=== PATIENT | female | born 1975 | race Caucasian/White ===

== ENCOUNTER 2017-04-01 21:49 | Emergency (ER) | payer OTHER ==
[~2017-04-01] VITALS: Ht 160 cm; Wt 65.8 kg
[2017-04-01 21:59] VITALS: BP_SYST 147
[2017-04-01] MEDS ORDERED: LevALBUTEROL HCL 1.25 MG/0.5 ML *CONC.* VIAL.NEB (XOPENEX CONC.) INH ONE (23:15)
[2017-04-01 23:28] LABS: BILIRUBIN,URINE NEGATIVE (NEGATIVE); BLOOD, URINE 1+ (NEGATIVE); CLARITY/URINE CLEAR (CLEAR); COLOR,URINE YELLOW (YELLOW); GLUCOSE,URINE NEGATIVE (NEGATIVE); KETONES,URINE NEGATIVE (NEGATIVE); LEUKOCYTE ESTERASE ,URINE NEGATIVE (NEGATIVE); NITRITE, URINE NEGATIVE (NEGATIVE); PROTEIN URINE NEGATIVE (NEGATIVE); UROBILINOGEN,URINE 0.2 (0.2-1.0)
[2017-04-01 23:35] LABS: BACTERIA,URINE FEW /HPF (None Seen); WBC,URINE 0-3 /HPF (0-3)
[2017-04-02 01:01] VITALS: BP_SYST 110
== END 2017-04-02 01:01 | disposition home or self-care (01) ==
LOC: SED 21:49
DX: M54.5 Low back pain (principal); R10.9 Unspecified abdominal pain; R11.10 Vomiting, unspecified
CPT/HCPCS: 81000-TC; 81025; 94640; 99285

== ENCOUNTER 2019-04-22 16:32 | Emergency (ER) | payer OTHER ==
[~2019-04-22] VITALS: Ht 160 cm; Wt 73.5 kg
[2019-04-22 16:41] VITALS: BP_SYST 144
[2019-04-22] MEDS ORDERED: traMADol HCL HCL 50 MG TABLET (ULTRAM) PO ONE (17:15)
[2019-04-22 18:25] VITALS: BP_SYST 138
== END 2019-04-22 18:27 | disposition home or self-care (01) ==
LOC: SED 16:32
DX: S23.3XXA Sprain of ligaments of thoracic spine, initial encounter (principal); M25.532 Pain in left wrist; V43.52XA Car driver injured in collision with other type car in traffic accident, initial encounter; Y93.89 Activity, other specified; Y92.410 Unspecified street and highway as the place of occurrence of the external cause; Y99.8 Other external cause status
CPT/HCPCS: 72072-TC; 99283